=== PATIENT | male | born 1950 | race Caucasian/White ===

== ENCOUNTER → 2020-05-25 08:49 | Outpatient (CLI) | payer OTHER, SELFPAY ==
[2020-05-25] MEDS: COVID-19 VACC(MODERNA-1)/PF 100 MCG/0.5 ML VIAL IM (08:57)
== END ==
PROVIDERS: Visit Provider Internal Medicine
DX: Z23 Encounter for immunization (principal)
CPT/HCPCS: 0011A; 91301

== ENCOUNTER → 2020-06-22 08:18 | Outpatient (CLI) | payer OTHER, SELFPAY ==
[2020-06-22] MEDS: COVID-19 VACC #2, MRNA(MOD) 100 MCG/0.5 ML VIAL IM (08:26)
== END ==
PROVIDERS: Visit Provider Internal Medicine
DX: Z23 Encounter for immunization (principal)
CPT/HCPCS: 0012A; 91301